=== PATIENT | female | born 1985 | race Two or more races ===

== ENCOUNTER 2016-08-20 17:08 | Emergency (ER) | payer OTHER ==
--- NOTE | 2016-08-20 17:14 | PDOC ---
[id number] currently 22 weeks visiting here from [place] with complaints of vaginal spotting last week while riding the train and this had no movement since. Patient states did feel movement daily but has not since the spotting started. Patient currently denies abdominal pain, vaginal discharge, dysuria, fever or chills. Patient will be sent upstairs for monitoring *DC/Admit/Observation/Transfer Diagnosis at time of Disposition: -related examination - Discharge Dispostion Condition at time of disposition: Good - Patient Instructions Additional Instructions: obtain care uma. return to L&D for any of the following: -vaginal bleeding -regular contractions -decreased movement -you think your water breaks - Intra-facility transfer Intra-facility transfer: Labor & Delivery
[2016-08-20 17:20] VITALS: BMI 27.4
[2016-08-20 17:44] VITALS: BP 124/63; PULSE 98; TEMP 98
== END 2016-08-20 18:30 | disposition left against medical advice (07) ==
LOC: JER 17:08
DX: O26.892 Other specified pregnancy related conditions, second trimester (principal); Z3A.22 22 weeks gestation of pregnancy
CPT/HCPCS: 76815-TC; 99281-25